=== PATIENT | female | born 1985 ===

== ENCOUNTER 2017-03-15 15:40 | Inpatient (IN) | payer OTHER ==
[2017-03-15] MEDS ORDERED: Sodium Citrate/Citric Acid 15 ml Sol PO ONE (16:20)
[2017-03-15] MEDS ORDERED: ceFAZolin 2 GM in Sodium Chloride 0.9% 100 ML IVPB ONE (16:20)
[2017-03-15 16:26] VITALS: BMI 28.3
[2017-03-15] MEDS ORDERED: Lactated Ringer's 1,000 ML IV SCH (16:30)
--- NOTE | 2017-03-15 16:31 | OBHP ---
Datetime: 03/15/2017 16:22 IP Adm Impression: Term, intrauterine IP Admit Plan: Admit to unit; Initiate Section protocol Admit Comment, IP Provider: at 38+weeks here c/o vaginal bleeding started in the afternoon. pt was in her doctor office and started some vb and pain. +fm. obhx 1 x c/s pmh gdma2 med pnv/insulin psh c/s soch den exam pt wasexamined in the office and blood seen by dr guidry a/p at 38+weeks gdma 2/vaginal bleeding/previous c/s admit to l_d npo/ivf labs tu aware skin antibiotics fs dr guidry aware Pelvic Type - PN: Adequate Extremities - PN: Normal Abdomen - PN: Normal Back - PN: Normal Breast - PN: Not Done Lungs - PN: Normal Heart - PN: Normal Thyroid - PN: Not Done Neurologic - PN: Normal HEENT - PN: Normal General - PN: Normal FHR - Baseline A Provider: 170 Contraction Comments Provider: irrg Comments, ACOG Physical Exam: gravid,non tender ext no edema,no calf ten IP Hx Assessment: The History has been Reviewed and is Current EGA AdmitDate IP: 38.3 IP Indication for Induction: Maternal Diabetes IP Chief Complaint: Vaginal bleeding NICHD Variability Prov Fetus A: Moderate 6-25bpm NICHD Accel Fetus A IP Provider: [id number] Genitourinary Exam: Normal DTRs - PN: Normal
[2017-03-15] MEDS ORDERED: Oxytocin 20 units in LR 2,000 ML IV ONE (16:37)
[2017-03-15] MEDS ORDERED: cefOXitin IV 2 gm in Dextrose 2 GM/50 ML BAG IVPB ONE (16:39)
[2017-03-15] MEDS ORDERED: Sodium Citrate/Citric Acid 15 ml Sol ONE (16:39)
[2017-03-15 16:42] LABS: BASO % 0.4 % (0.0-2.0); EOS % 0.3 % (0.0-4.0); HEMATOCRIT 39.8 % (34.0-47.0); LYMPH # 1.5 K/uL (1.0-4.3); LYMPH % 17.5 % (20.0-40.0); MEAN CELL VOLUME 86.2 fL (81.0-99.0); MEAN CORPUSCULAR HGB CONC 33.6 g/dL (33.0-37.0); MEAN PLATELET VOLUME 11.3 fL (7.2-11.7); MONO # 0.7 K/uL (0.0-0.8); MONO % 7.9 % (0.0-10.0); RED CELL DISTRIBUTION WIDTH 13.6 % (11.5-14.5); WHITE BLOOD COUNT 8.8 K/uL (4.8-10.8)
[2017-03-15 16:51] LABS: INR 0.9; RBC URINE 1 /hpf (0-3); URINE BACTERIA RARE (<OCC); URINE BILIRUBIN NEGATIVE (NEGATIVE); URINE COLOR Straw (YELLOW); URINE GLUCOSE (UA) 3+ mg/dL (Normal); URINE KETONE NEGATIVE (NEGATIVE); URINE LEUKOCYTE ESTERASE NEG Leu/uL (Negative); URINE PROTEIN NEGATIVE (NEGATIVE); URINE UROBILINOGEN NORMAL mg/dL (0.2-1.0); WBC URINE 1 /hpf (0-5)
[2017-03-15 16:57] LABS: BLOOD UREA NITROGEN 8 mg/dL (7-17); CALCIUM 8.5 mg/dl (8.6-10.4); CARBON DIOXIDE 21 mmol/L (22-30); CHLORIDE 105 mmol/L (98-107); GFR AFRICAN-AMERICAN > 60; GLUCOSE,RANDOM 156 mg/dL (65-105); POTASSIUM 4.6 mmol/L (3.6-5.2); SODIUM 135 mmol/L (132-148)
[2017-03-15 17:01] LABS: URINE BLOOD 3+ (NEGATIVE)
[2017-03-15] MEDS ORDERED: Morphine 1 mg/ml preservative-free Inj(Duramorph) ONE (17:23)
[2017-03-15] MEDS ORDERED: ePHEDrine 50 mg/ml Inj ONE (17:23)
[2017-03-15] MEDS ORDERED: Oxytocin 10 Units/ml Inj ONE (17:54)
[2017-03-15] MEDS ORDERED: Oxycodone/Acetaminophen 5/325 mg Tab PO PRN (18:26)
[2017-03-16] MEDS: ceFAZolin IV 2 gm in Dextrose 1 GM/50 ML BAG IVPB SCH ×2 (01:02→09:34)
[2017-03-16] MEDS: Simethicone 80 mg Chewtab PO SCH ×4 (09:32→21:17)
--- NOTE | 2017-03-16 12:54 | OBDS ---
DELIVERY PERSONNEL Delivery Doctor: Keron Mohamud MD Scrub Nurse: Angie Contreras House Moving Supervisor: Dakota Jovel RN Anesthesiologist: janette MATERNAL INFORMATION Delivery Anesthesia: Spinal Estimated Blood Loss (ml): 500 Placenta Cultured: No Maternal Complications: Abruptio Placenta Other Maternal Complications: GDMA2 previous c/s VAGINAL BLEEDING Provider Comments: Partial abruptio Nuchal cord X 1 Meconium LABOR SUMMARY EDC: 03/26/2017 00:00 No. Babies in Womb: 1 Attempted: No Labor Anesthesia: None LABOR INFORMATION Reason for Induction: Not Applicable Oxytocin: N/A Group B Beta Strep: Negative Antibiotics # of Doses: 0 Steroids Given: None Reason Steroids Not Administered: Not Applicable MEMBRANES Membranes Rupture Method: Artificial Rupture of Membranes: 03/15/2017 17:48 Length of Rupture (hrs): 0.02 Amniotic Fluid Color: Heavy Meconium Amniotic Fluid Amount: Moderate Amniotic Fluid Odor: Normal STAGES OF LABOR Stage 3 hrs: 0 Stage 3 min: 2 CSECTION DELIVERY Primary Indication: Other Other Primary Indication: previous c/s, Partial placenta previa, Secondary Indication: Repeat Elective Other Secondary Indication: distress CSection Urgency: Elective CSection Incidence: Repeat Labor: No Labor Elective: Nonelective CSection Incision: Lower Uterine Transverse BABY A INFORMATION Delivery Date/Time: 03/15/2017 17:49 Method of Delivery: Born in Route : No : N/A Forceps: N/A Vacuum Extraction: N/A Shoulder Dystocia : No SHOULDER DYSTOCIA BABY A Delivery Date/Time: 03/15/2017 17:49 PRESENTATION/POSITION BABY A Presentation: Cephalic Breech Presentation: N/A PLACENTA INFORMATION BABY A Placenta Delivery Time : 03/15/2017 17:51 Placenta Method of Delivery: Manual Removal Placenta Status: Delivered SCORES BABY A Heart Rate 1 min: >100 bpm Resp Effort 1 min: Good Cry Reflex Irritability 1 min: Cough or Sneeze or Pulls Away Muscle Tone 1 min: Active Motion Color 1 min: Body [place], Extremities Blue SCORE 1 MIN: 9 Heart Rate 5 min: >100 bpm Resp Effort 5 min: Good Cry Reflex Irritability 5 min: Cough or Sneeze or Pulls Away Muscle Tone 5 min: Active Motion Color 5 min: Body [place], Extremities Blue SCORE 5 MIN: 9 INFORMATION BABY A Gestational Age at Delivery: 38.3 Gestational Status: Term Outcome : Liveborn Condition : Stable Infant Sex: Female IDENTIFICATION/MEDS BABY A ID Band Number: [id number] ID Band Location: Left Leg; Left Arm Sensor Applied: Yes Sensor Number: [id number] Sensor Location : Cord Clamp Vitamin K Given : Aquamephyton 1 mg IM; Left Thigh Erythromycin Given: Given Both Eyes WEIGHT/LENGTH BABY A Birthweight (gms): 4205 Infant Weight (lb): 9 Weight (oz): 4 Length Inches: 20.00 Infant Length cms: 50.8 CORD INFORMATION BABY A No. Cord Vessels: 3 Nuchal Cord : Around Neck x1, Loose Nuchal Cord Other: n/a Cord Blood Taken: Yes Infant Suction: Mouth; Nose ASSESSMENT BABY A Infant Complications: Extended Tachycardia Physical Findings at Delivery: Within Normal Limits Respirations: Appears Normal Grocery Bagger/ALS Called : Yes Infant Care By: DR AQUINO Transferred To: [facility]
--- NOTE | 2017-03-16 12:59 | OBPPN ---
Datetime: 03/16/2017 12:55 PP Pain Prov: Within normal limits PP Breasts Prov: Normal PP Heart Prov: Normal PP Lungs Prov: Normal PP Abdomen/Uterus Prov: Normal PP Lochia Prov: Normal PP Vulva/Perineum Prov: Normal PP CVA Tenderness Prov: Normal PP Extremities Prov: Normal PP C/S Incision Prov: Normal PP Progress Prov: Normal PP Impression Prov: Normal progression PP Plan Prov: Continue present management PP Progress Note Prov: POD #1 No C/O Vs Stable Abdomen Soft Wound Clean P: Adv. diet IP PP Procedures: None
[2017-03-16] MEDS ORDERED: Bisacodyl 5mg EC Tab PO ONE (18:27)
[2017-03-16 20:03] LABS: BASO # 0.1 K/uL (0.0-0.2); BASO % 0.4 % (0.0-2.0); EOS % 0.1 % (0.0-4.0); HEMATOCRIT 33.2 % (34.0-47.0); LYMPH # 1.5 K/uL (1.0-4.3); LYMPH % 11.5 % (20.0-40.0); MEAN CELL VOLUME 86.1 fL (81.0-99.0); MEAN CORPUSCULAR HEMOGLOBIN 29.5 pg (27.0-31.0); MEAN CORPUSCULAR HGB CONC 34.3 g/dL (33.0-37.0); MEAN PLATELET VOLUME 11.5 fL (7.2-11.7); RED CELL DISTRIBUTION WIDTH 13.4 % (11.5-14.5); WHITE BLOOD COUNT 12.8 K/uL (4.8-10.8)
[2017-03-16] MEDS: Oxycodone/Acetaminophen 5/325 mg Tab PO PRN (22:12)
[2017-03-17] MEDS: Oxycodone/Acetaminophen 5/325 mg Tab PO PRN ×3 (06:23→22:17)
[2017-03-17] MEDS: Simethicone 80 mg Chewtab PO SCH ×4 (10:13→22:09)
[2017-03-18 08:42] VITALS: PULSE 80; RESP 18; O2SAT 100
[2017-03-18] MEDS: Simethicone 80 mg Chewtab PO SCH (09:46)
--- NOTE | 2017-03-18 11:11 | OP ---
PROCEDURE DATE: 03/15/2017 NATURE OF OPERATION: Repeat section with bilateral tubal ligation. ATTENDING SURGEON: Cristian Mohamud MD. OPERATING SURGEON: Cristian Mohamud MD. MEDIA ASSOCIATE: Dr. Sharma. TRACK AND FIELD COACH: Dr. Geiger. ANESTHESIA: Spinal. PREOPERATIVE DIAGNOSES: A 38 to 39 weeks' , previous section, intolerance to labor, partial abruptio. POSTOPERATIVE DIAGNOSES: Live female, 9 pounds 4 ounces, Apgars 9 and 9, nuchal cord x1, meconium, vertex and multiparity. PROCEDURE: The patient was placed in supine position after the spinal anesthesia. The abdomen was prepped and draped for a Pfannenstiel incision. A Pfannenstiel incision was made between the symphysis pubis and the umbilicus and was carried down to rectus fascia. The fascia was cleaned and incised the length of the incision. The recti were retracted laterally. The transversalis fascia identified and mobilized superiorly. The peritoneum was then incised the length of the incision. The vesicouterine fold of the visceral peritoneum was identified and incised transversely between the round ligaments. The bladder flap was developed and mobilized inferiorly by blunt dissection. A transverse incision was made into the anterior wall of the lower uterine segment and extended laterally toward the round ligament. Membranes were incised and the amniotic fluid shows meconium with nuchal cord x1. The patient was delivered from the OT position of a living female infant in good condition at exactly 05:49 p.m. on 03/15/2017, Apgars 9 and 9. Presenting part was floating. The placenta was on the posterior wall near the fundus. Membrane and placenta were completely removed manually. The uterus was closed in two layers with continuous suture of chromic #1 gut, first layer including myometrium, second layer imbricating the myometrium. The bladder flap was reattached with continuous suture of chromic #2-0 catgut on an atraumatic needle. The uterus was well contracted. Tubes and ovaries were normal and the tubal ligation was done. The bilateral tubal ligation was performed. Right fallopian tube was held with a Lydia forceps at the avascular area of mesosalpinx transfixed with 0 chromic passed through the mesosalpinx and the tube was tied on both sides followed by double ligation. Portions of the tube above the ligature was cut and cauterized. All bleeding points were checked and tied. Left fallopian tube was similarly transfixed, ligated, and cut using the same suture. The was completed as usual. The peritoneum with continuous suture of 0 chromic catgut on an atraumatic needle, fascia with running interlocking sutures of 0 Vicryl and subcutaneous tissue with #2-0 plain catgut and the skin was closed with the evan. The patient tolerated the procedure well and was sent to recovery room in satisfactory condition. Cristian Mohamud MD
--- NOTE | 2017-03-18 11:56 | OBDCSUM ---
Datetime: 03/18/2017 11:53 Discharged to, Provider: Home Follow up at, Provider: Dr. Mohamud Disch Instr Activity: Normal activity Disch Instr Diet: Regular Discharge Instructions, Provider: Routine instructions given Discharge Diagnosis, Provider: Term Delivered Follow up in weeks, Provider: 2 weeks Disch Referrals: None Disch Activity Restrictions: No sexual activity; Nothing in vagina - [facility], tampons, douche Discharge Comment, Provider: Meconium Nuchal cord X1 Discharge Diagnosis Prov Other: abruptio Placentae Contraception after Delivery: Tubal Ligation
--- NOTE | 2017-03-18 11:57 | OBPPN ---
Datetime: 03/18/2017 11:51 PP Pain Prov: Within normal limits PP Breasts Prov: Normal PP Heart Prov: Normal PP Lungs Prov: Normal PP Abdomen/Uterus Prov: Normal PP Lochia Prov: Normal PP Vulva/Perineum Prov: Normal PP CVA Tenderness Prov: Normal PP Extremities Prov: Normal PP C/S Incision Prov: Normal PP Progress Prov: Normal PP Impression Prov: Normal progression PP Plan Prov: Continue present management PP Progress Note Prov: POD #3 No C/o VS Stable Abdomen soft Wound Clean P: Home today IP PP Procedures: None
[2017-03-18] MEDS ORDERED: Influenza Vaccine 60 mcg/0.5 mL SYR (4YR UP) IM ONE (12:28)
[2017-03-18 22:00] VITALS: BP 135/86; TEMP 97
== END 2017-03-18 14:00 | disposition home or self-care (01) | DRG 766 ==
LOC: C.EROB 15:40 → C.4D 16:25 → C.4M 22:30
PROVIDERS: ADMIT Obstetrics & Gynecology Gynecology; ATTEND Obstetrics & Gynecology Gynecology
PROC: 10D00Z1 Extraction of Products of Conception, Low, Open Approach (ICD-10-PCS; principal; 2017-03-15)
PROC: 0UT70ZZ Resection of Bilateral Fallopian Tubes, Open Approach (ICD-10-PCS; 2017-03-15)
DX: O24.424 Gestational diabetes mellitus in childbirth, insulin controlled (principal); O34.219 Maternal care for unspecified type scar from previous cesarean delivery; O69.81X0 Labor and delivery complicated by cord around neck, without compression, not applicable or unspecified; O77.0 Labor and delivery complicated by meconium in amniotic fluid; Z30.2 Encounter for sterilization; Z3A.38 38 weeks gestation of pregnancy; Z37.0 Single live birth